=== PATIENT | female | born 1950 | race Hispanic/Latino ===

== ENCOUNTER 2017-07-08 09:22 | Day surgery (SDC) | payer MEDICARE ==
[~2017-07-08 09:22] MED LIST: ANTIBIOTIC OINT TP ONE; BACITRACIN ONE; MARCAINE 0.5% 0 ML INFILTRATI ONE; XYLOCAINE 1%/ EPI 1:100,000 INFILTRATI ONE
--- NOTE | 2017-07-08 10:45 | Anesthesia Day of Surgery ---
Anesthesia Day of Surgery - Day of Surgery Patient Examined: Yes Patient H&P Reviewed: Yes Patient is NPO: Yes
[2017-07-08] MEDS ORDERED: ZOFRAN IV PRN (10:49)
--- NOTE | 2017-07-08 10:49 | Anesthesia Consultation ---
Anesthesia Consult and Med Hx Date of service: 07/08/17 - Airway Anesthetic Teeth Evaluation: Poor, Chipped, Dentures (multiple chipped dentures) ROM Head & Neck: Adequate Mental/Hyoid Distance: Adequate Mallampati Class: Class II Intubation Access Assessment: Probably Good - Pulmonary Exam CTA: Yes (decreased BS/BL) - Cardiac Exam Cardiac Exam: RRR (distant HS) - Pre-Operative Health Status ASA Pre-Surgery Classification: ASA3 Proposed Anesthetic Plan: MAC - Pre-Anesthesia Comment Pre-Anesthesia Comments: takes prednisone daily (for nearly 20 years now) - Pulmonary Hx Smoking: Yes (1 PPD X 50 YRS. now VAPes with tobacco ) Hx Sleep Apnea: No (ROBIN PRE SCREEN LOW RISK) - Cardiovascular System Hx Hypertension: Yes (2001) Hx Coronary Artery Disease: Yes (no CP or SOB. back pain limits activity) Hx Heart Attack/AMI: No Hx Angina: Yes (RARE CP- LAST NITRO ONE YR AGO) Hx Cardia Arrhythmia: No (EKG-SR 06/2017) Hx Heart Murmur: Yes - Central Nervous System Hx Back Pain: Yes (CHRONIC ,WITH ARABELLA LEG WEAKNESS AND NUMBNESS) - Gastrointestinal Hx Gastroesophageal Reflux Disease: Yes - Other Systems Hx Cancer: No - Additional Comments Anesthesia Medical History Comments: fibromyalgia
[2017-07-08] MEDS ORDERED: PEPCID PO NR (11:00)
[2017-07-08] MEDS ORDERED: NACL 0.9% 1000 ML 1,000 ML IV SCH ×2 (11:00)
[2017-07-08] MEDS ORDERED: ANCEF/STERILE WATER 2 GM/20 ML IV NR (11:12)
[2017-07-08] MEDS ORDERED: XYLOCAINE MPF 2% ONE (11:24)
[2017-07-08] MEDS ORDERED: QUELICIN ONE (11:24)
[2017-07-08] MEDS ORDERED: SUBLIMAZE ONE (11:24)
[2017-07-08] MEDS ORDERED: ZEMURON IV ONE ×2 (11:24→14:20)
[2017-07-08] MEDS ORDERED: DIPRIVAN 10 MG/ML IV ONE (11:24)
[2017-07-08] MEDS ORDERED: VERSED ONE (11:24)
[2017-07-08] MEDS ORDERED: XYLOCAINE 2%/ EPI 1:200,000 INFILTRATI ONE (11:35)
[2017-07-08] MEDS ORDERED: ANCEF ONE ×2 (12:21→12:39)
[2017-07-08] MEDS ORDERED: ePHEDrine SULFATE ONE (12:22)
[2017-07-08] MEDS ORDERED: METHYLENE BLUE ONE (12:23)
[2017-07-08] MEDS ORDERED: NEO SYNEPHRINE/NS Syringe(OR USE) IV ONE (12:39)
[2017-07-08] MEDS ORDERED: OMNIPAQUE 300 MG/50 ML (CATH LAB) IV ONE ×3 (13:17)
[2017-07-08] MEDS ORDERED: ANCEF IV ONE (13:18)
[2017-07-08] MEDS ORDERED: BACITRACIN IR ONE (13:18)
[2017-07-08] MEDS ORDERED: NACL 0.9% 1000 ML IR ONE ×2 (13:18)
[2017-07-08] MEDS ORDERED: XYLOCAINE 2%/EPI 1:100,000 INFILTRATI ONE ×3 (13:18)
[2017-07-08] MEDS ORDERED: METHYLENE BLUE IV ONE ×3 (13:18)
[2017-07-08] MEDS ORDERED: DEPO-MEDROL ONE ×2 (14:14→14:15)
[2017-07-08] MEDS ORDERED: MARCAINE 0.5% INFILTRATI ONE ×2 (14:15→14:30)
[2017-07-08] MEDS ORDERED: NACL 0.9% 1000 ML 3,000 ML ONE (14:20)
[2017-07-08] MEDS ORDERED: DEPO-MEDROL INTRA-ARTI ONE (14:30)
[2017-07-08] MEDS ORDERED: NACL 0.9% 1000 ML 1,000 ML ONE (14:33)
[2017-07-08] MEDS ORDERED: NEOSTIGMINE ONE (15:17)
[2017-07-08] MEDS ORDERED: ROBINUL ONE ×2 (15:17)
--- NOTE | 2017-07-08 16:40 | Operative Report ---
Operative Report Operative Report: PREOPERATIVE DIAGNOSES: 1. Lumbar disc herniation at L2-3. 2. Left L3 radiculopathy. 3. Lumbar spinal stenosis at L2-3. 4. Post laminectomy syndrome. POSTOPERATIVE DIAGNOSES: 1. Lumbar disc herniation at L2-3. 2. Left L3 radiculopathy. 3. Lumbar spinal stenosis at L2-3. 4. Postlaminectomy syndrome. PROCEDURES PERFORMED: 1. Minimally invasive lumbar discectomy left L2-3. 2. Left L2-L3 transforaminal epidural steroid injection. SURGEON: Bobby Sullivan M.D. ANESTHESIA: Gen. endotracheal anesthesia. ESTIMATED BLOOD LOSS: 25 mL. COMPLICATIONS None. SPECIMEN: YES NEUROMONITORING: Continuous EMG neuromonitoring and SSEP neuromonitoring of the lower extremities was performed. No abnormal activity was reported during the procedure. Normal activity at the conclusion of the procedure. DESCRIPTION OF PROCEDURE: Following informed consent, the patient was brought to the operative suite. General endotracheal anesthesia was induced without cup occasion. Patient was then turned on the operative table in the prone position. All pressure points were meticulously padded. The patient's back was dale prepped and draped in routine fashion. Neuromonitoring leads were placed in the lower extremities. Patient received 2 g of cefazolin sodium intravenously for antibiotic prophylaxis. Arm fluoroscopy unit was brought into place attention was turned to the L2 to S3 level. Using a right posterolarteral approach, a 22-gauge spinal needle was advanced into the disc space. Discography was performed using 8 mL of Omnipaque 300 mixed with 1 mL of cefazolin (100 mg) and 1 mL of methylene blue. Disc was well opacified was 6 mL of the injectate without extravasation. Attention was external to the left L2-3 neural foramen. A 70-gauge needle was advanced across the foramen into the posterior aspect of the disc on the left side. 1.5 cm skin incision was made. Guidewire was then advanced through the needle into the disc space. Serial dilators were utilized to create a tract and a tubular retractor was anchored in place allowing direct visualization of the L2-3 neural foramen and facet joint. The lateral margin of the superior articular process of L3 was partially removed. Bipolar electrocautery was utilized for hemostasis. The annulus was identified and annulotomy was performed. The ventral epidural space was explored. Several fragments of heavily collagenized disc material were encountered within the ventral epidural space and removed. Following exploration of the ventral epidural space including removal of all visible disc fragments, the posterior aspect of the disc was entered and additional degenerated disc material was resected. The annular defect was then cauterized with bipolar electrocautery to shrink the size of the annular defect. Hemostasis was found to be satisfactory. The foramen was explored and no additional disc fragments were encountered. The endoscope and tubular retractor were then removed. A 22-gauge needle was readvanced into the neural foramen and Omnipaque 300 was injected to confirm position. Transforaminal epidural injection was then performed with 80 mg of methyl prednisolone mixed with 2 mL of 0.5% bupivacaine was injected. The needle was removed. The incision was then closed with interrupted 3-0 Vicryl subcutaneous sutures and skin edges were approximated with Dermabond no abnormal EMG activity was noted. A sterile dressing was applied. The patient is an turned onto the gurney in the supine position, extubated and taken to recovery room where she was noted been stable cardiopulmonary neurologic condition. No abnormality noted on physical examination in the PACU. CONDITION ON DISCHARGE: Good.
[2017-07-08] MEDS ORDERED: SUBLIMAZE IV ONE ×2 (16:41→17:14)
--- NOTE | 2017-07-08 16:55 | Post Anesthesia Evaluation ---
- Post Anesthesia Evaluation Airway Patent: Yes Stable Respiratory Function: Yes Nausea/Vomiting: No Temp > 96.8F: Yes Pain Manageable: Yes (slight shoulder pain from lying prone during surgery) Adequeate Hydration: Yes Anesthesia Complications: No Block Receding Appropriately: Not Applicable Patient on Ventilator: No
[2017-07-08 18:19] VITALS: BP 158/87
--- NOTE | 2017-07-10 09:47 | XRay Report ---
LUMBOSACRAL SPINE, 2 VIEWS History: Lumbar disc herniation, status post microdiscectomy. Findings: PA and lateral fluoroscopic images of the upper lumbar spine were obtained during surgery. The images demonstrate contrast agent injection into the L2-3 disc space. Microdiscectomy changes were noted by the operative notes. There is moderate to severe degenerative disc disease throughout the visualized lumbar spine but no evidence for fracture or malalignment. Please correlate with the procedural report as needed. Impression: Surgical changes in the lumbar spine. Advanced lumbar spondylosis.
== END 2017-07-08 17:48 | disposition home or self-care (01) ==
LOC: OR 09:22
PROVIDERS: ATTEND Radiology Diagnostic Radiology
DX: M51.16 Intervertebral disc disorders with radiculopathy, lumbar region (principal); M96.1 Postlaminectomy syndrome, not elsewhere classified; M48.061 Spinal stenosis, lumbar region without neurogenic claudication; I25.119 Atherosclerotic heart disease of native coronary artery with unspecified angina pectoris; I10 Essential (primary) hypertension; E78.00 Pure hypercholesterolemia, unspecified; K21.9 Gastro-esophageal reflux disease without esophagitis; M06.80 Other specified rheumatoid arthritis, unspecified site; Z90.710 Acquired absence of both cervix and uterus; Z88.2 Allergy status to sulfonamides; Z98.49 Cataract extraction status, unspecified eye; Z87.891 Personal history of nicotine dependence; Z98.890 Other specified postprocedural states
CPT/HCPCS: 62380; 64483; 72100; 88304; J0330; J0690; J1030; J2250; J2370; J2704; J2710; J3010; J7030; Q9967; Q9968